=== PATIENT | male | born 1950 | race Caucasian/White ===

== ENCOUNTER → 2017-05-01 | Outpatient (CLI) | payer OTHER ==
[~2017-05-01] MED LIST: LIPITOR10 MG PO
== END ==
LOC: RAD 09:02
DX: R05 Cough (principal)

== ENCOUNTER → 2017-05-18 | Outpatient (CLI) | payer OTHER | LOC: RAD 13:03 | DX: R05 Cough (principal) ==

== ENCOUNTER → 2017-08-27 | Outpatient (CLI) | payer OTHER ==
[~2017-08-27] VITALS: Ht 172.7 cm; Wt 79.4 kg
--- NOTE | ~2017-08-27 | P ---
[facility] [place] [address] PROCEDURE REPORT Name: SABINE PRASAD Room #: [facility].#: [id number] Admission: 08/27/17 Attend Phys: Bob Ely MD Discharge: Date of : 54 Report #: [id number] THIS REPORT FOR: //name// CC: oBb Valenzuela MD OUTPATIENT COLONOSCOPY REPORT BRIEF HISTORY: The patient is a 66-year-old male with history of colon polyps. He had several adenomas removed 5 years ago. He presents for surveillance colonoscopy due to history of colon polyps. PREOPERATIVE DIAGNOSIS: History of colon polyps. POSTOPERATIVE DIAGNOSIS: Moderate diverticulosis coli, greater left colon than right colon. MEDICATIONS: Deep sedation with propofol per anesthesia. SPECIMEN: None. ESTIMATED BLOOD LOSS: None. PROCEDURE: Colonoscopy to cecum and terminal ileum. FINDINGS: Prior to propofol sedation, procedure of colonoscopy was discussed with the patient as well as potential risks and its complications. He indicates he understands and desires to proceed. DESCRIPTION OF PROCEDURE: With the patient in left lateral decubitus position, digital examination was completed, which revealed no abnormalities. Subsequently, an Olympus video colonoscope was introduced in the rectum and advanced under direct vision to the cecum. Done with minimal difficulty. The cecum was identified by the ileocecal valve and the appendiceal orifice. I was able to visualize the distal segment of the terminal ileum, which was inspected and noted to be unremarkable. At that point, the scope was slowly withdrawn and careful circumferential views were obtained including retroflexion of the scope in the ascending colon. Upon slow withdrawal of the scope, the prep was good. The mucosa was within normal limits, normal vascular pattern, normal light reflex. No mucosal abnormalities were seen. Polyps were not seen on this examination. The colonic mucosa throughout the entire colon was normal. However, he was noted to have diverticular disease with a moderate sized diverticula involving the proximal as well as the distal colon. The diverticular disease is much more prominent in the left colon, in particular the sigmoid colon, but there were also scattered diverticula throughout the proximal colon as well. There was no endoscopic evidence of diverticulitis. The scope [address] [address] PROCEDURE REPORT Name: SABINE PRASAD Room #: [facility].#: [id number] Admission: 08/27/17 Attend Phys: Bob Ely MD Discharge: Date of : 54 Report #: [id number] was withdrawn in the rectum. Upon retroflexion, no abnormalities were seen. The scope was withdrawn. The patient tolerated the procedure well. CONDITION OF THE PATIENT UPON DISCHARGE: Following procedure, the patient was drowsy, arousable, conversant and will be discharged to home when fully ambulatory. INSTRUCTIONS TO THE PATIENT AND FAMILY AT THE TIME OF DISCHARGE: No neoplastic lesions were seen today. He had 2 small adenomas on his last exam. Therefore, I think it would be reasonable for him to return for colonoscopy in 10 years. He will otherwise return to the care of Dr. Noah Valenzuela. His last colonoscopy was about 5 years ago. Withdrawal time from the cecum was 12 minutes and 35 seconds. <ELECTRONICALLY SIGNED> By: Bob Ely MD 08/28/17 [id number] Bob Ely MD /nt
== END | disposition home or self-care (01) ==
LOC: GI 08:11
DX: Z12.11 Encounter for screening for malignant neoplasm of colon (principal); K57.30 Diverticulosis of large intestine without perforation or abscess without bleeding; Z86.010 Personal history of colon polyps; Z87.891 Personal history of nicotine dependence; E78.5 Hyperlipidemia, unspecified
CPT/HCPCS: 62110; 62900

== ENCOUNTER → 2019-05-10 | Outpatient (CLI) | payer OTHER | LOC: CAT 09:16 | DX: J01.00 Acute maxillary sinusitis, unspecified (principal) ==